=== PATIENT | female | born 1960 | race Two or more races ===

== ENCOUNTER 2017-07-06 16:28 | Emergency (ER) | payer OTHER ==
[~2017-07-06] VITALS: Ht 160 cm; Wt 63.5 kg
[2017-07-06] MEDS ORDERED: ONDANSETRON 4 MG TAB.RAPDIS PO ONE (17:00)
[2017-07-06] MEDS ORDERED: ONDANSETRON 4 MG TAB.RAPDIS ONE (17:11)
--- NOTE | 2017-07-06 17:26 | NUR ---
PT BACK FROM CT
[2017-07-06 18:32] VITALS: BP 134/78
== END 2017-07-06 18:34 | disposition home or self-care (01) ==
LOC: ER 16:31
DX: S40.812A Abrasion of left upper arm, initial encounter (principal); S40.212A Abrasion of left shoulder, initial encounter; R11.0 Nausea; I10 Essential (primary) hypertension; F32.9 Major depressive disorder, single episode, unspecified; V49.49XA Driver injured in collision with other motor vehicles in traffic accident, initial encounter; Y93.89 Activity, other specified; Y92.413 State road as the place of occurrence of the external cause; Y99.8 Other external cause status
CPT/HCPCS: 70450-TC; 73030-TC; 73060-TC; A4606; Q0162; Z7610